=== PATIENT | female | born 1970 | race Caucasian/White ===

== ENCOUNTER → 2016-08-05 | Outpatient (CLI) | payer BC ==
--- NOTE | 2016-08-08 08:19 | XR ---
Lumbosacral spine HISTORY: Low back pain 5 views of the lumbosacral spine Comparison to lumbar spine MRI 08 October 2009 There is no spondylolysis or spondylolisthesis. Loss of disc height greatest at L3-4, L5-S1, there is associated spondylosis at L3-4. Sclerosis present in the posterior elements of the lower lumbar spin e compatible with facet arthropathy. Lumbar vertebral bodies show preserved height and bone mineraliz ation. IMPRESSION: Degenerative disc disease and facet arthropathy.
== END | disposition home or self-care (01) ==
LOC: RADXRYALE 14:07
PROVIDERS: ATTEND Physician Assistant Medical
DX: M51.16 Intervertebral disc disorders with radiculopathy, lumbar region (principal); M46.96 Unspecified inflammatory spondylopathy, lumbar region
CPT/HCPCS: 72110

== ENCOUNTER → 2019-01-24 | Outpatient (CLI) | payer BC ==
--- NOTE | 2019-01-28 08:12 | MM ---
Reason for exam: screening (asymptomatic). Last mammogram was performed 8 years and 1 month ago. History: Took hormonal contraceptives for 4 years. Physical Findings: A clinical breast exam by your physician is recommended on an annual basis and results should be correlated with mammographic findings. MG 3D Screening Mammo W/Cad Bilateral CC and MLO view(s) were taken. Prior study comparison: December 29, 2010, bilateral digital screening mammo w/CAD. October 10, 2008, bilateral digital screening mammogram. The breast tissue is heterogeneously dense. This may lower the sensitivity of mammography. No suspicious abnormality. No significant changes when compared with prior studies. ASSESSMENT: Negative, BI-RAD 1 RECOMMENDATION: Routine screening mammogram of both breasts in 1 year.
== END | disposition home or self-care (01) ==
LOC: RADMAMWWP 15:23
PROVIDERS: ATTEND Family Medicine
DX: Z12.31 Encounter for screening mammogram for malignant neoplasm of breast (principal)
CPT/HCPCS: 77063; 77067

== ENCOUNTER → 2019-03-20 | Outpatient (CLI) | payer BC ==
--- NOTE | 2019-03-20 16:07 | US ---
EXAMINATION TYPE: US pelvic complete DATE OF EXAM: 03/20/2019 COMPARISON: NONE CLINICAL HISTORY: N925 IRREG MENSES,R10.30 LOWER ABD PAIN. Irregular heavy painful periods x 1 year, 4, para 3, miscarriage 1, history of tubal ligation. TECHNIQUE: . Transabdominal sonographic images of the pelvis were acquired. Date of LMP: 3 weeks ago EXAM MEASUREMENTS: Uterus: 16.8 x 9.9 x 10.9 cm Endometrial Stripe: 0.8 cm Right Ovary: 2.7 x 1.5 x 1.9 cm Left Ovary: 3.3 x 2.5 x 3.8 cm 1. Uterus: anteverted, enlarged, heterogeneous with 10.5 x 8.6 x 9.1cm hypoechoic fibroid 2. Endometrium: visualized portions appear wnl, limited and distorted by fibroid uterus 3. Right Ovary: wnl 4. Left Ovary: 2.2 x 1.6 x 2.2cm cystic area 5. Bilateral Adnexa: wnl 6. Posterior cul-de-sac: wnl IMPRESSION: Enlarged heterogeneous uterus compatible with fibroids.
== END | disposition home or self-care (01) ==
LOC: RADUSWWP 14:31
PROVIDERS: ATTEND Family Medicine
DX: N92.5 Other specified irregular menstruation (principal)
CPT/HCPCS: 76856

== ENCOUNTER 2019-05-21 09:00 | Inpatient (IN) | payer BC ==
[2019-06-13 12:02] VITALS: BMI 30.9
--- NOTE | 2019-06-19 16:14 | P.HPOB ---
History of Present Illness H&P Date: 06/19/19 Chief Complaint: Dysfunctional uterine bleeding and fibroid uterus Ambika is a 49-year-old female with a grossly enlarged 16 week to 17 week size uterus with large 10+ centimeter fibroid. Risks/fit/alternatives to a total abdominal hysterectomy possible bilateral salpingo-oophorectomy were reviewed with the patient in detail and all questions were answered for her prior to proceeding to the operative room. Risks did include but were not limited to bleeding and infection, damage to bladder, damage to bowel, vascular injuries, nerve damage, potential need for further surgeries and ureteral injuries. Due to the grossly enlarged size of her uterus a open procedure has been opted for. We did discuss potentially doing something to reduce the size of the fibroid but is still wouldn't delay her treatment she is opted for total abdominal hysterectomy. Her symptoms have progressed and gotten worse. Her cycles are very irregular and painful now for approximately 1 year few months ago she had 24 days with the bleeding then stopped and then 2 weeks later began having bleeding again and endometrial biopsy was done in the office while scant tissue was returned it was benign. Past Medical History Past Medical History: Asthma, Hyperlipidemia Additional Past Medical History / Comment(s): Hypoglycemic. Uterine fibroid. Menses irreg, extremely heavy. History of Any Multi-Drug Resistant Organisms: None Reported Past Surgical History: Bladder Surgery, Orthopedic Surgery, Tubal Ligation Additional Past Surgical History / Comment(s): Bladder sling. ORIF Lt index finger, later had pins removed. Laparoscopic surg for endometriosis. Past Anesthesia/Blood Transfusion Reactions: Family History of Problems w/ Anesthesia Additional Past Anesthesia/Blood Transfusion Reaction / Comment(s): Father has anesthesia problems, unknown. Smoking Status: Never smoker - Past Family History Mother Family Medical History: No Reported History Medications and Allergies Home Medications Medication Instructions Recorded Confirmed Type ARIPiprazole [Abilify] 10 mg PO HS 06/13/19 06/13/19 History Albuterol Sulfate [Proair Hfa] 2 puff INHALATION Q4HR PRN 06/13/19 06/13/19 History Atomoxetine HCl [Strattera] 60 mg PO DAILY 06/13/19 06/13/19 History Atorvastatin [Lipitor] 20 mg PO HS 06/13/19 06/13/19 History Fluticasone/Salmeterol [Advair 1 inhalation PO BID 06/13/19 06/13/19 History 250-50 Diskus] Montelukast Sodium [Singulair] 10 mg PO HS 06/13/19 06/13/19 History Sertraline HCl [Zoloft] 100 mg PO HS 06/13/19 06/13/19 History buPROPion HCL [Wellbutrin XL] 450 mg PO HS 06/13/19 06/13/19 History lamoTRIgine [LaMICtal] 200 mg PO HS 06/13/19 06/13/19 History traMADol HCL [Ultram] 50 mg PO BID PRN 06/13/19 06/13/19 History Allergies Allergy/AdvReac Type Severity Reaction Status Date / Time No Known Allergies Allergy Verified 06/13/19 11:34 Exam Osteopathic Statement: *. No significant issues noted on an osteopathic structural exam other than those noted in the History and Physical/Consult. - OBG Physical Exam Breast: both: normal (no masses) Abdomen: bowel sounds normal, no diffuse tenderness, no bruit present, no guarding noted, no hepatomegaly, no splenomegaly, no mass Abdomen detail: right lower quadrant: mass (Grossly enlarged fibroid uterus), left lower quadrant: mass Vulva: both: normal Vagina: normal moisture, no discharge Cervix: no lesion, no discharge Uterus: normal size, enlarged (10 centimeter fibroid), normal contour Adnexa: both: normal Anus/Rectum: normal perianal skin, no rectal mass, no hemorrhoids, heme negative
[2019-06-20] MEDS ORDERED: HYDROCORTISONE SUCCINATE 100 MG/2 ML VIAL IV PRN (05:40)
[2019-06-20] MEDS ORDERED: MIDAZOLAM 2 MG/2 ML VIAL IV PRN (05:40)
[2019-06-20] MEDS ORDERED: DEXAMETHASONE SOD PHOSPHATE 10 MG/ML 1 ML VIAL IV ONE (05:40)
[2019-06-20] MEDS ORDERED: SCOPOLAMINE 1.5MG/72HR PATCH TRANSDERM ONE (05:40)
[2019-06-20 06:44] LABS: Glucose,Whole Blood 80 mg/dL (75-99)
[2019-06-20] MEDS: LACTATED RINGERS 1,000 ML IV SCH ×2 (06:45→19:07)
[2019-06-20] MEDS ORDERED: LIDOCAINE 1% 20 ML VIAL (10MG/ML) FOR IV START INTRADERMA ONE (07:05)
[2019-06-20] MEDS: ONDANSETRON 4 MG/2 ML VIAL IVP ONE ×2 (07:09→09:32)
[2019-06-20] MEDS ORDERED: fentaNYL (PF) 50 MCG/ML 2 ML AMP IVP ONE (07:12)
[2019-06-20] MEDS ORDERED: MIDAZOLAM 2 MG/2 ML VIAL IVP ONE (07:12)
[2019-06-20] MEDS ORDERED: NEOSTIGMINE 1 MG/ML 10 ML VIAL ONE (07:31)
[2019-06-20] MEDS ORDERED: ROCURONIUM BROMIDE 10 MG/ML 10 ML VIAL IV ONE (07:31)
[2019-06-20] MEDS ORDERED: PROPOFOL 10 MG/ML 20 ML VIAL IV ONE (07:31)
[2019-06-20] MEDS ORDERED: MORPHINE SULFATE (PF) 0.3 MG/0.3 ML SYR ONE (07:31)
[2019-06-20] MEDS ORDERED: LIDOCAINE 1% INJ 10MG/ML (20 ML MDV) ONE (07:31)
[2019-06-20] MEDS ORDERED: SUCCINYLCHOLINE CHLORIDE 100 MG/5 ML SYR IV ONE (07:31)
[2019-06-20] MEDS ORDERED: MIDAZOLAM 2 MG/2 ML VIAL ONE (07:31)
[2019-06-20] MEDS ORDERED: GLYCOPYRROLATE 0.2 MG/ML 2 ML VIAL ONE (07:31)
[2019-06-20] MEDS ORDERED: fentaNYL (PF) 50 MCG/ML 2 ML AMP ONE (07:31)
[2019-06-20] MEDS ORDERED: VASOPRESSIN 20 UNIT in SODIUM CHLORIDE 0.9% 60 ML SQ ONE (08:16)
[2019-06-20] MEDS ORDERED: LACTATED RINGERS 1,000 ML IV ONE (08:17)
[2019-06-20] MEDS ORDERED: ZOLPIDEM 5 MG TAB PO PRN (09:14)
[2019-06-20] MEDS ORDERED: NALOXONE 0.4 MG/ML 1 ML VIAL IV PRN ×2 (09:16→09:51)
[2019-06-20] MEDS ORDERED: HYDROmorphone PCA 10 MG/50 ML BAG IV PRN (09:16)
--- NOTE | 2019-06-20 09:23 | P.OP ---
Date of Procedure: 06/20/19 Preoperative Diagnosis: Menorrhagia: Fibroid uterus Postoperative Diagnosis: Same Procedure(s) Performed: Total abdominal hysterectomy with bilateral salpingectomy Anesthesia: DONATO Surgeon: Nacho Tate Fish Cutting Machine Operator #1: Margarita Zapata Estimated Blood Loss (ml): 350 IV fluids (ml): 1,300 Urine output (ml): 50 Pathology: other (Uterus, cervix, fallopian tubes) Condition: stable Disposition: floor Operative Findings: Grossly enlarged fibroid uterus Description of Procedure: Elinor was taken to the operating suite where a general anesthetic was found be adequate. She was prepped and draped in the normal sterile fashion and placed in the dorsal supine position. Initially a Pfannenstiel skin incision was made and this incision was then carried through to the underlying layer of the fascia was second knife. Fascia was then nicked in the midline and this opening was extended laterally with Hutchinson scissors. Superior and inferior aspect of this incision were then grasped tented up and bluntly and sharply dissected off the rectus muscles. Rectus muscles were then divided in the midline and sharp dissection through the peritoneum was done. This opening was then extended supe riorly and inferiorly with good visualization of both bowel bladder. The self- retaining retractor was then inserted into the abdomen and bowels packed out of the operative field. Patient was then placed in Trendelenburg position. Right and left adnexa were then grasped with a long Adore clamp and uterus was attempted to be lifted out of the abdomen. Unfortunately there was minimal upward mobility and we're unable to completely pull the uterus out into the abdomen incision. Therefore initially a Esvin clamp was then used to clamp the utero-ovarian ligament tissues clamped cut and tied bilaterally. Moving slowly inferiorly as the uterus occupied the essentially entire space of the incision opening the broad ligament tissues were dissected around the uterus including the round ligament that was clamped cut and tied once we ultimately the uterus off the bladder flap was identified and entered with Metzenbaum scissors and carried across face uterus with Metzenbaum scissors and the bladder was bluntly dissected out of the operative field. Continued very cautious and slow clamping and cutting of the tissues very closely uterus through the broad ligament tissues down to the uterine vascular was then done. Once were able to get full below the body of the uterus and onto the upper cervical margins with control of the uterine vasculature dilute Pitressin solution was injected into the uterus and it was incised with a scissor and following the Pitressin solution around was excised at the upper level of the cervix. Body of the uterus was then passed off to pathology. Brigette clamps were then used to grasp the couple's upper cervical body and it was elevated. Esvin clamps were then used to clamp the uterine vasculature moving inferiorly along the cardinal and uterosacral l igaments in a stepwise fashion. Once entering the vagina the corners were held and the cervix was removed from the operative field. Corners of the vaginal cuff were then reinforced and verification of excellent hemostasis along the pedicles was made. Once this was completed 0 Vicryl suture was used to close the vaginal cuff in a running locking fashion. Pelvis was then irrigated with no bleeding noted and excellent hemostasis was obtained a lateral ovaries were identified Esvin clamp was then used to clamp across the fallopian tube and it was excised and sutured. These were also sent to pathology for evaluation. Once this was completed instruments and bowel packing was removed peritoneal layer was then identified and marked with hemostats and then closed in a running fashion. Fascial layer was then closed with 0 Vicryl suture in a running fashion a liter of 3-0 Vicryl was placed in deep subcuticular tissues to reapproximate the skin and close space. Skin was then closed with 4-0 Vicryl on subcuticularly. Sponge, lap, needle counts were all correct 2. Patient was then taken to the recovery room in stable and satisfactory condition.
[2019-06-20] MEDS: HYDROmorphone 0.5 MG/0.5 ML SYRINGE IVP PRN ×5 (09:32→09:57)
[2019-06-20] MEDS: KETOROLAC 30 MG/ML 1 ML VIAL IVP PRN ×2 (09:32→16:59)
[2019-06-20] MEDS: MEPERIDINE 50 MG/ML SYRINGE IVP ONE ×2 (10:06→10:11)
[2019-06-20] MEDS: MORPHINE SULFATE 2 MG/ML SYRINGE IVP PRN ×2 (13:24→19:33)
[2019-06-20] MEDS ORDERED: ALBUTEROL NEBULIZED 2.5 MG/3 ML INHALATION PRN (17:14)
[2019-06-20] MEDS: SYMBICORT 80-4.5 MCG INHALER INHALATION SCH (19:56)
[2019-06-20] MEDS: lamoTRIgine 100 MG TAB PO SCH (21:41)
[2019-06-20] MEDS: SERTRALINE 100 MG TAB PO SCH (21:41)
[2019-06-20] MEDS: MONTELUKAST 10 MG TAB PO SCH (21:41)
[2019-06-20] MEDS: buPROPion XL 150 MG TAB.ER.24H PO SCH (21:41)
[2019-06-20] MEDS: ARIPiprazole 10 MG TAB PO SCH (21:41)
[2019-06-20] MEDS: ATORVASTATIN 20 MG TAB PO SCH (21:41)
[2019-06-21] MEDS: KETOROLAC 30 MG/ML 1 ML VIAL IVP PRN ×4 (00:58→19:15)
[2019-06-21 07:25] LABS: Basophils % (A) 0 %; Eosinophils # (A) 0.1 k/uL (0-0.7); Eosinophils % (A) 1 %; Hypochromasia Moderate; Lymphocytes # (A) 1.7 k/uL (1.0-4.8); Lymphocytes % (A) 15 %; MCH 24.3 pg (25.0-35.0); MCV 78.4 fL (80.0-100.0); Mean Platelet Volume 7.7; Monocytes # (A) 0.9 k/uL (0-1.0); Monocytes % (A) 8 %; Neutrophils # (A) 8.1 k/uL (1.3-7.7); Neutrophils % (A) 73 %; Platelet Count 279 k/uL (150-450); RBC 3.58 m/uL (3.80-5.40); RDW 15.4 % (11.5-15.5); WBC 11.2 k/uL (3.8-10.6)
[2019-06-21] MEDS ORDERED: SODIUM CHLORIDE 0.9% 500 ML 500 ML IV ONE (07:44)
[2019-06-21 07:50] LABS: HGB 8.7 gm/dL (11.4-16.0)
[2019-06-21] MEDS: SYMBICORT 80-4.5 MCG INHALER INHALATION SCH ×2 (09:02→20:39)
--- NOTE | 2019-06-21 09:09 | P.PN ---
Progress Note - Text Progress Note Date: 06/21/19 Postop day one: Ambika is overall doing well. Her vital signs are currently stable and afebrile. Her blood pressures 106/66. Hemoglobin is noted to be 8.7. She voices no complaints and has no signs or symptoms of hypovolemia. No tachycardia. Pain is relatively well-controlled. We'll restart the [place]. Goodwin catheter was not removed yesterday we will remove this morning and start ambulation. Likely advance diet later today. All questions are answered for her at this time. On physical exam heart regular, lungs clear, extremities without pain. Abdomen soft positive bowel sounds are noted in her incision is otherwise clean dry and intact. Assessment postop day 1. Plan continue current care. Will consult Dr. Morillo for medical management
[2019-06-21] MEDS: ATOMOXETINE HCL 60 MG PO SCH (11:45)
[2019-06-21] MEDS: HYDROcodone/APAP 7.5-325MG 1 EACH TAB PO PRN (12:14)
--- NOTE | 2019-06-21 14:17 | P.PN ---
Progress Note - Text 06/21 645am 49-year-old female status post total abdominal hysterectomy. Patient had a spinal an injection of Duramorph for postop pain control, with a VAS of 4, no complains of nausea vomiting. Patient did have complains of pruritus which should chace in 24 hours.
[2019-06-21] MEDS ORDERED: diphenhydrAMINE 25 MG CAP PO STA (15:50)
[2019-06-21] MEDS ORDERED: BACITRACIN 500 UNIT/GM OINT 28.4 GM TUBE TOPICAL ONE (15:50)
--- NOTE | 2019-06-21 17:27 | P.CONS ---
History of Present Illness - Reason for Consult Leukocytosis - History of Present Illness 49-year-old female admitted for elective hysterectomy for the leiomyoma of the uterus. Patient's x-ray underwent surgery and patient is comparing of severe pain. Patient denied any fever chills patient denied dysuria cough runny nose. Patient does have leukocytosis and low hemoglobin both of which are expected pos tsurgery. Blood pressure is low back as well which is also expected postsurgery. Review of Systems REVIEW OF SYSTEMS: CONSTITUTIONAL: No fever, no malaise, no fatigue. HEENT: No recent visual problems or hearing problems. Denied any sore throat. CARDIOVASCULAR: No chest pain, orthopnea, PND, no palpitations, no syncope. PULMONARY: No shortness of breath, no cough, no hemoptysis. GASTROINTESTINAL: No diarrhea, no nausea, no vomiting, no abdominal pain. NEUROLOGICAL: No headaches, no weakness, no numbness. HEMATOLOGICAL: Denies any bleeding or petechiae. GENITOURINARY: Denies any burning micturition, frequency, or urgency. MUSCULOSKELETAL/RHEUMATOLOGICAL: Denies any joint pain, swelling, or any muscle pain. ENDOCRINE: Denies any polyuria or polydipsia. The rest of the 14-point review of systems is negative. Past Medical History Past Medical History: Asthma, Hyperlipidemia Additional Past Medical History / Comment(s): Hypoglycemic. Uterine fibroid. Menses irreg, extremely heavy. History of Any Multi-Drug Resistant Organisms: None Reported Past Surgical History: Bladder Surgery, Orthopedic Surgery, Tubal Ligation Additional Past Surgical History / Comment(s): Bladder sling. ORIF Lt index finger, later had pins removed. Laparoscopic surg for endometriosis. Past Anesthesia/Blood Transfusion Reactions: Family History of Problems w/ Anesthesia Additional Past Anesthesia/Blood Transfusion Reaction / Comm: Father has anesthesia problems, unknown. Past Psychological History: ADD/ADHD, Anxiety, Bipolar, Depression Smoking Status: Never smoker Past Alcohol Use History: Occasional Past Drug Use History: None Reported - Past Family History Mother Family Medical History: No Reported History Medications and Allergies Home Medications Medication Instructions Recorded Confirmed Type ARIPiprazole [Abilify] 10 mg PO HS 06/13/19 06/20/19 History Albuterol Sulfate [Proair Hfa] 2 puff INHALATION Q4HR PRN 06/13/19 06/20/19 History Atomoxetine HCl [Strattera] 60 mg PO DAILY 06/13/19 06/20/19 History Atorvastatin [Lipitor] 20 mg PO HS 06/13/19 06/20/19 History Fluticasone/Salmeterol [Advair 1 inhalation PO BID 06/13/19 06/20/19 History 250-50 Diskus] Montelukast Sodium [Singulair] 10 mg PO HS 06/13/19 06/20/19 History Sertraline HCl [Zoloft] 100 mg PO HS 06/13/19 06/20/19 History buPROPion HCL [Wellbutrin XL] 450 mg PO HS 06/13/19 06/20/19 History lamoTRIgine [LaMICtal] 200 mg PO HS 06/13/19 06/20/19 History traMADol HCL [Ultram] 50 mg PO BID PRN 06/13/19 06/20/19 History Allergies Allergy/AdvReac Type Severity Reaction Status Date / Time No Known Allergies Allergy Verified 06/20/19 06:20 Physical Exam Vitals: Vital Signs Temp Pulse Resp BP Pulse Ox 06/21/19 15:00 98.1 F 92 18 96/62 92 L 06/21/19 13:00 18 06/21/19 11:00 18 06/21/19 09:00 18 06/21/19 08:57 106/66 06/21/19 08:35 85 18 06/21/19 07:00 98.4 F 85 18 78/48 97 06/21/19 04:46 93/57 06/21/19 04:30 95/58 06/21/19 02:45 98/57 06/21/19 01:45 98.1 F 97 16 86/49 96 06/21/19 01:01 13 06/20/19 23:11 14 06/20/19 18:52 97.9 F 87 16 100 Intake and Output 06/21/19 06/21/19 06/21/19 06:59 14:59 22:59 Intake Total 1736 Output Total 1120 Balance -1120 1736 Intake: Oral 1736 Output: Urine 1120 Uretheral (Goodwin) 210 Other: Voiding Method Indwelling Catheter # Voids 2 PHYSICAL EXAMINATION: GENERAL: The patient is alert and oriented x3, not in any acute distress. Well developed, well nourished. HEENT: Pupils are round and equally reacting to light. EOMI. No scleral icterus. No conjunctival pallor. Normocephalic, atraumatic. No pharyngeal erythema. No thyromegaly. CARDIOVASCULAR: S1 and S2 present. No murmurs, rubs, or gallops. PULMONARY: Chest is clear to auscultation, no wheezing or crackles. ABDOMEN: Soft, nontender, nondistended, normoactive bowel sounds. No palpable organomegaly. MUSCULOSKELETAL: No joint swelling or deformity. EXTREMITIES: No cyanosis, clubbing, or pedal edema. NEUROLOGICAL: Gross neurological examination did not reveal any focal deficits. SKIN: No rashes. Results CBC & Chem 7: 06/21/19 06:58 Labs: Abnormal Lab Results - Last 24 Hours (Table) 06/21/19 Range/Units 06:58 WBC 11.2 H (3.8-10.6) k/uL RBC 3.58 L (3.80-5.40) m/uL Hgb 8.7 L D (11.4-16.0) gm/dL Hct 28.0 L (34.0-46.0) % MCV 78.4 L (80.0-100.0) fL MCH 24.3 L (25.0-35.0) pg Neutrophils # 8.1 H (1.3-7.7) k/uL Assessment and Plan Plan: -Leukocytosis: Reactive no evidence of from infection at this time no more testing is necessary. Watch for any fevers. -Anemia patient appears to have some acute blood last anemia from surgery unsure whether patient has chronic anemia which can be further evaluated as an outpatient no further testing is necessary for this either -Mild hypotension which is expected postoperatively. Treat with the IV fluids -Hyperlipidemia resumed on statin -Asthma without any acute exacerbation -Depression patient was resumed on sertraline
[2019-06-21] MEDS: SERTRALINE 100 MG TAB PO SCH (19:17)
[2019-06-21] MEDS: ATORVASTATIN 20 MG TAB PO SCH (19:17)
[2019-06-21] MEDS: buPROPion XL 150 MG TAB.ER.24H PO SCH (19:17)
[2019-06-21] MEDS: ARIPiprazole 10 MG TAB PO SCH (19:17)
[2019-06-21] MEDS: lamoTRIgine 100 MG TAB PO SCH (19:17)
[2019-06-21] MEDS: MONTELUKAST 10 MG TAB PO SCH (19:18)
[2019-06-22] MEDS: MORPHINE SULFATE 2 MG/ML SYRINGE IVP PRN ×3 (00:43→08:03)
[2019-06-22] MEDS: LACTATED RINGERS 1,000 ML IV SCH (05:14)
[2019-06-22] MEDS: SYMBICORT 80-4.5 MCG INHALER INHALATION SCH ×2 (07:18→19:22)
[2019-06-22] MEDS: ATOMOXETINE HCL 60 MG PO SCH (10:16)
--- NOTE | 2019-06-22 11:16 | P.PN ---
Progress Note - Text Progress Note Date: 06/22/19 Elinor is seen and evaluated postop day 2. I did see her last night postop day 1 at approximately 5 PM and she was feeling well up ambulating minimally and tolerating a diet. This morning she is in bed laying on her side in significant discomfort and pain complaining that her pain is an 8 out of 10. She relates the pain began increasing dramatically last night sometime after 8 PM and has progressively gotten worse. She did not sleep most of the night but I was not notified of any change. She's been receiving morphine IV intermittently, has flatly refused Toradol and [place]. It is unclear if she simply is gotten too far behind with her pain medications or with her limited flatus has gas-like pain. She did have a drop in her hemoglobin yesterday to 8.7 we'll repeat this morning with CMP to verify no other gross findings. Ordered a acute abdominal x-ray with chest x-ray to rule out ileus/early SBO. She relates that she is decided to not take her medicines because they were not working but I think there is some confusion as to what the goal for the use of Toradol was think she thought that were always for acute pain understanding that is more an anti-inflammatory and we'll just reduce the inflammation and thereby decrease the pain versus the morphine which was 4 for acute incisional pain. Her vital signs are otherwise stable. She is afebrile. Heart regular in rate and rhythm Lungs clear to auscultation bilaterally Abdomen is soft minimally distended with good bowel sounds noted in all 4 quadrants. Her incision is otherwise intact and unremarkable. She relates that she has passed minimal flatus and has not had a bowel movement. Her extremities are without pain and have no significant edema. Assessment postop day 2. Plan as above and I will go to recheck her early this afternoon and see if we have any improvement in her symptomatology once these changes are made. I advised that I want her to at least try the Toradol again and see if we can decrease some of the inflammatory status and we need her to ambulate and try and pass her flatus if that was causing her pain.
--- NOTE | 2019-06-22 11:48 | XR ---
EXAMINATION TYPE: XR abdomen acute w cxr DATE OF EXAM: 06/22/2019 CLINICAL HISTORY: Pain after hysterectomy 3 days earlier. TECHNIQUE: Single frontal view of chest is obtained. Supine and upright views of the abdomen are acq uired. COMPARISON: None. FINDINGS: There is patchy left basilar linear atelectasis. Right lung is clear. Cardiac silhouette s ize appears upper limits of normal. Osseous structures are intact. Gas is seen in slightly prominent stomach as well as small and large bowel loops throughout the abdom en with few scattered air-fluid levels. Right-sided pelvic phleboliths. No free air. Osseous structur es are intact IMPRESSION: 1. Patchy left basilar linear atelectasis. 2. Overall nonspecific but likely nonobstructive bowel gas pattern. Favor diffuse ileus as suspected clinically.
[2019-06-22] MEDS ORDERED: KETOROLAC 30 MG/ML 1 ML VIAL IVP STA (11:49)
[2019-06-22] MEDS: HYDROcodone/APAP 7.5-325MG 1 EACH TAB PO PRN ×2 (12:00→17:42)
[2019-06-22] MEDS: SIMETHICONE 80 MG CHEWABLE PO SCH ×3 (12:14→21:44)
[2019-06-22 12:38] LABS: Basophils % (A) 0 %; Eosinophils # (A) 0.1 k/uL (0-0.7); Eosinophils % (A) 1 %; HCT 28.7 % (34.0-46.0); HGB 8.9 gm/dL (11.4-16.0); Hypochromasia Marked; Lymphocytes # (A) 0.9 k/uL (1.0-4.8); Lymphocytes % (A) 5 %; MCH 24.5 pg (25.0-35.0); MCV 78.9 fL (80.0-100.0); Mean Platelet Volume 7.3; Monocytes # (A) 1.1 k/uL (0-1.0); Monocytes % (A) 7 %; Neutrophils # (A) 14.3 k/uL (1.3-7.7); Neutrophils % (A) 86 %; Platelet Count 287 k/uL (150-450); RBC 3.64 m/uL (3.80-5.40); RDW 15.4 % (11.5-15.5); WBC 16.6 k/uL (3.8-10.6)
[2019-06-22 12:53] LABS: ALT 22 U/L (4-34); AST 35 U/L (14-36); African American GFR (CKD) >90 (>60 ml/min/1.73 sqM); Alkaline Phosphatase 66 U/L (38-126); Anion Gap 5 mmol/L; Blood Urea Nitrogen 11 mg/dL (7-17); Calcium 8.2 mg/dL (8.4-10.2); Carbon Dioxide 27 mmol/L (22-30); Chloride 105 mmol/L (98-107); Glucose 94 mg/dL (74-99); Non-African American GFR(CKD) >90 (>60 ml/min/1.73 sqM); Potassium 4.3 mmol/L (3.5-5.1); Sodium 137 mmol/L (137-145); Total Bilirubin 0.4 mg/dL (0.2-1.3); Total Protein 5.5 g/dL (6.3-8.2)
--- NOTE | 2019-06-22 14:21 | P.PN ---
Progress Note - Text Progress Note Date: 06/22/19 Elinor seen and evaluated again postop day 1. She appears much more comfortable for her pain is much better was she's not passing any significant more flatus. The Toradol and [place] seem to be helping significantly. She was drinking some liquids I advised her not to eat anything but liquids likely are fine if she used judiciously until she is passing flatus. We will make sure she ambulates more later today and if pain recurs likely add Reglan to help with possible early ileus. All the questions are answered for both she and her this time. We will try 1 more dose of Toradol and then discontinue the Toradol and start her on Motrin for anti-inflammatory. White blood cell count was 16 this morning which is elevated from yesterday for unknown reason. Vital signs are stable and afebrile and there is no hyperpyrexia, will however it had antibiotics as precaution due to length and complexity of surgery.
[2019-06-22] MEDS ORDERED: KETOROLAC 30 MG/ML 1 ML VIAL IVP ONE (18:00)
[2019-06-22] MEDS: ALBUTEROL NEBULIZED 2.5 MG/3 ML INHALATION SCH (19:39)
[2019-06-22] MEDS: buPROPion XL 150 MG TAB.ER.24H PO SCH (21:41)
[2019-06-22] MEDS: SERTRALINE 100 MG TAB PO SCH (21:41)
[2019-06-22] MEDS: lamoTRIgine 100 MG TAB PO SCH (21:41)
[2019-06-22] MEDS: MONTELUKAST 10 MG TAB PO SCH (21:42)
[2019-06-22] MEDS: ARIPiprazole 10 MG TAB PO SCH (21:42)
[2019-06-22] MEDS: ATORVASTATIN 20 MG TAB PO SCH (21:42)
--- NOTE | 2019-06-22 22:08 | PN ---
PROGRESS NOTE DATE OF SERVICE: 06/22/2019 This 49-year-old woman who was admitted total abdominal hysterectomy with bilateral salpingectomy for menorrhagic fibroid uterus, is complaining of persistent abdominal pain. A plain x-ray abdomen showed some intestinal dilatation as well as atelectasis. The morphine has been withheld because of that reason. WBC 16.2, hemoglobin is 8.9. Patient closely monitored. There is no history of fever, rigors, chills, chest pain, palpitations at this time. PHYSICAL EXAMINATION: Patient is alert, oriented x3. Pulse is 98, blood pressure 107/67, respiration 18, temperature 97.9, pulse ox 94% on room air. HEENT: Conjunctivae normal. Oral mucosa moist. NECK: No jugular venous distention. No lymph node enlargement. CARDIOVASCULAR: S1, S2. RESPIRATORY: Diminished breath sounds at the bases. A few scattered rhonchi. ABDOMEN: Soft, status post surgery. LEGS: No swelling. NERVOUS SYSTEM: No focal deficits. LABS: WBC 16.2, hemoglobin is 8.9. ASSESSMENT: 1. Status post total abdominal hysterectomy and as well as bilateral salpingectomy for menorrhagia and fibroid uterus. 2. Postoperative atelectasis as expected. 3. Increased WBC, possibly reactive in nature. 4. Anemia, microcytic anemia of chronic blood-loss anemia, present on admission. 5. History of asthma. 6. Hyperlipidemia. 7. History of hypoglycemia. 8. History uterine fibroids. 9. History of bladder surgery. 10.History of degenerative joint disease. 11.History attention deficit/attention deficit hyperactivity disorder, anxiety, bipolar depression. RECOMMENDATIONS AND DISCUSSION: In this 49-year-old woman who presented with multiple complex medical issues, at this time I recommend to continue current medications, management and symptomatic treatment. I recommend to add a course of bronchodilators, incentive spirometry, proton pump inhibitors. Otherwise, I would also recommend repeat labs in the morning to ensure stability. Otherwise, we will follow the patient closely with you. Thank you Dr. Tate. BONILLA / SAM: [id number] /
[2019-06-23 03:07] VITALS: TEMP 97.6
[2019-06-23] MEDS: IBUPROFEN 600 MG TAB PO SCH ×2 (03:09→08:53)
[2019-06-23] MEDS: HYDROcodone/APAP 7.5-325MG 1 EACH TAB PO PRN ×2 (03:11→08:54)
[2019-06-23] MEDS: LACTATED RINGERS 1,000 ML IV SCH (05:18)
[2019-06-23 07:39] LABS: Anisocytosis Slight; Basophils % (A) 0 %; Eosinophils # (A) 0.2 k/uL (0-0.7); Eosinophils % (A) 1 %; HCT 26.9 % (34.0-46.0); HGB 8.2 gm/dL (11.4-16.0); Hypochromasia Moderate; Lymphocytes # (A) 1.3 k/uL (1.0-4.8); Lymphocytes % (A) 10 %; MCH 24.1 pg (25.0-35.0); MCHC 30.6 g/dL (31.0-37.0); MCV 78.8 fL (80.0-100.0); Mean Platelet Volume 7.3; Monocytes # (A) 1.1 k/uL (0-1.0); Monocytes % (A) 8 %; Neutrophils # (A) 10.8 k/uL (1.3-7.7); Neutrophils % (A) 78 %; Platelet Count 258 k/uL (150-450); RBC 3.41 m/uL (3.80-5.40); RDW 16.2 % (11.5-15.5); WBC 13.8 k/uL (3.8-10.6)
[2019-06-23 08:14] VITALS: BP 102/66; PULSE 86; RESP 18
[2019-06-23 08:18] LABS: African American GFR (CKD) >90 (>60 ml/min/1.73 sqM); Anion Gap 4 mmol/L; Blood Urea Nitrogen 10 mg/dL (7-17); Carbon Dioxide 28 mmol/L (22-30); Chloride 106 mmol/L (98-107); Glucose 78 mg/dL (74-99); Non-African American GFR(CKD) >90 (>60 ml/min/1.73 sqM); Potassium 4.1 mmol/L (3.5-5.1); Sodium 138 mmol/L (137-145)
[2019-06-23] MEDS ORDERED: PANTOPRAZOLE 40 MG/10 ML VIAL IVP SCH (09:00)
[2019-06-23] MEDS: SYMBICORT 80-4.5 MCG INHALER INHALATION SCH (09:37)
[2019-06-23] MEDS: ALBUTEROL NEBULIZED 2.5 MG/3 ML INHALATION SCH (09:37)
[2019-06-23] MEDS: ATOMOXETINE HCL 60 MG PO SCH (09:45)
[2019-06-23] MEDS: SIMETHICONE 80 MG CHEWABLE PO SCH (09:48)
--- NOTE | 2019-06-23 10:15 | P.DS ---
Providers Date of admission: 06/20/19 06:04 Expected date of discharge: 06/23/19 Attending physician: Nacho Tate Consults: 06/21/19 09:08 Consult Physician Urgent Consulting Provider: Jesus Mena Consult Reason/Comments: medical management Do you want consulting provider notified?: Yes Primary care physician: [facility] Course: Elinor is doing much better this morning. She is ambulating, voiding and tolerating her diet. Other than some incisional pain she is feeling well. Her vital signs are stable and she is afebrile. Heart regular, lungs clear, extre mities are without pain. Abdomen is soft positive bowel sounds are noted in her incision is otherwise clean dry and intact. We'll plan discharged home today with instructions to follow up with me in approximately 1 week. Prescription for [place]/Keflex/Motrin were all 4 to the pharmacy. A abdominal binder is being ordered to help with her cough and pain with coughing. Otherwise she is stable for discharge and discharge instructions were thoroughly reviewed. Assessment postop day 3 from a total abdominal hysterectomy with mild ileus yesterday and blood loss anemia Plan discharged home follow up with me in approximately 1 week her prescription restrictions reported to the pharmacy. She is going to be on [place] and Motrin. She should not take her Ultram with the [place]. Patient Condition at Discharge: Good Plan - Discharge Summary Discharge Rx Participant: No New Discharge Prescriptions: New Ibuprofen [Motrin] 600 mg PO Q6HR PRN #30 tab PRN Reason: Pain HYDROcodone/APAP 5-325MG [[place] 5-325] 1 tab PO Q4HR PRN #30 tab PRN Reason: Pain Cephalexin [Keflex] 500 mg PO Q6HR 3 Days #12 cap No Action Albuterol Sulfate [Proair Hfa] 2 puff INHALATION Q4HR PRN PRN Reason: asthma sx ARIPiprazole [Abilify] 10 mg PO HS Atomoxetine HCl [Strattera] 60 mg PO DAILY Atorvastatin [Lipitor] 20 mg PO HS buPROPion HCL [Wellbutrin XL] 450 mg PO HS Fluticasone/Salmeterol [Advair 250-50 Diskus] 1 inhalation PO BID lamoTRIgine [LaMICtal] 200 mg PO HS Montelukast Sodium [Singulair] 10 mg PO HS Sertraline HCl [Zoloft] 100 mg PO HS traMADol HCL [Ultram] 50 mg PO BID PRN PRN Reason: Pain Discharge Medication List ARIPiprazole [Abilify] 10 mg PO HS 06/13/19 [History] Albuterol Sulfate [Proair Hfa] 2 puff INHALATION Q4HR PRN 06/13/19 [History] Atomoxetine HCl [Strattera] 60 mg PO DAILY 06/13/19 [History] Atorvastatin [Lipitor] 20 mg PO HS 06/13/19 [History] Fluticasone/Salmeterol [Advair 250-50 Diskus] 1 inhalation PO BID 06/13/19 [History] Montelukast Sodium [Singulair] 10 mg PO HS 06/13/19 [History] Sertraline HCl [Zoloft] 100 mg PO HS 06/13/19 [History] buPROPion HCL [Wellbutrin XL] 450 mg PO HS 06/13/19 [History] lamoTRIgine [LaMICtal] 200 mg PO HS 06/13/19 [History] traMADol HCL [Ultram] 50 mg PO BID PRN 06/13/19 [History] HYDROcodone/APAP 5-325MG [[place] 5-325] 1 tab PO Q4HR PRN #30 tab 06/22/19 [Rx] Ibuprofen [Motrin] 600 mg PO Q6HR PRN #30 tab 06/22/19 [Rx] Cephalexin [Keflex] 500 mg PO Q6HR 3 Days #12 cap 06/23/19 [Rx] Follow up Appointment(s)/Referral(s): Nacho Tate DO [Doctor of Osteopathic Medicine] - 1 Week Activity/Diet/Wound Care/Special Instructions: No heavy lifting, limit stairs and driving, and pelvic rest. If any high temperatures, heavy bleeding, or severe pain call my office
== END 2019-06-23 11:33 | disposition home or self-care (01) | DRG 742 ==
LOC: 2ORMAIN 06-20 06:04 → 4SSUR 06-20 09:29
PROVIDERS: ADMIT Obstetrics & Gynecology; ATTEND Obstetrics & Gynecology
PROC: 0UT90ZZ Resection of Uterus, Open Approach (ICD-10-PCS; principal; 2019-06-20 07:30)
PROC: 0UT70ZZ Resection of Bilateral Fallopian Tubes, Open Approach (ICD-10-PCS; principal; 2019-06-20 07:30)
DX: D25.9 Leiomyoma of uterus, unspecified (principal); D62 Acute posthemorrhagic anemia; K56.7 Ileus, unspecified; E78.5 Hyperlipidemia, unspecified; F31.9 Bipolar disorder, unspecified; F90.9 Attention-deficit hyperactivity disorder, unspecified type; F41.9 Anxiety disorder, unspecified; J45.909 Unspecified asthma, uncomplicated; N92.0 Excessive and frequent menstruation with regular cycle; N93.8 Other specified abnormal uterine and vaginal bleeding; Z79.899 Other long term (current) drug therapy
CPT/HCPCS: 74022; 80048; 80053; 81025; 85025; 86850; 86900; 86901; 88307; 94640; 94760

== ENCOUNTER → 2019-06-17 | Outpatient (CLI) | payer BC ==
[2019-06-17 13:11] LABS: Basophils # (A) 0.1 k/uL (0-0.2); Basophils % (A) 1 %; Eosinophils # (A) 0.3 k/uL (0-0.7); Eosinophils % (A) 4 %; HCT 35.3 % (34.0-46.0); Hypochromasia Marked; Lymphocytes # (A) 1.7 k/uL (1.0-4.8); Lymphocytes % (A) 22 %; MCH 24.6 pg (25.0-35.0); MCHC 31.3 g/dL (31.0-37.0); MCV 78.6 fL (80.0-100.0); Mean Platelet Volume 7.8; Monocytes # (A) 0.7 k/uL (0-1.0); Monocytes % (A) 8 %; Neutrophils % (A) 62 %; Platelet Count 374 k/uL (150-450); RBC 4.49 m/uL (3.80-5.40); RDW 14.7 % (11.5-15.5)
[2019-06-17 13:23] LABS: Calcium 9.6 mg/dL (8.4-10.2); Potassium 4.6 mmol/L (3.5-5.1)
== END | disposition home or self-care (01) ==
LOC: LABPAT 11:56
PROVIDERS: ATTEND Obstetrics & Gynecology
DX: Z01.812 Encounter for preprocedural laboratory examination (principal)
CPT/HCPCS: 36415; 80048; 85025

== ENCOUNTER → 2021-11-05 | Outpatient (CLI) | payer BC ==
--- NOTE | 2021-11-05 09:18 | BD ---
EXAMINATION TYPE: Axial Bone Density DATE OF EXAM: 11/05/2021 COMPARISON: NONE CLINICAL HISTORY: 51 years year old Female. ICD-10 CODE: Z780 POST MENOPAUSAL WITHOUT HRT Height: 63 Weight: 174.2 FRAX RISK QUESTIONS: Alcohol (3 or more units per day): NO Family History (Parent hip fracture): NO Glucocorticoids (More than 3mos): NO History of Fracture in Adulthood: NO Secondary Osteoporosis: 1. Type 1 Diabetes: NO 2. Hyperthyroidism: NO 3. Menopause before 45: NO 4. Malnutrition: NO 5. Chronic liver disease: NO Rheumatoid Arthritis: NO Current Tobacco Use: NO RISK FACTORS HISTORY OF: Hip Fracture (Right/Left): NO Spine Fracture: NO History of Wrist Fracture: NO Surgery to Spine/Hip(right/left)/Wrist (right/left): NO Family History of Osteoporosis: NO Active: NO Diet low in dairy products/other sources of calcium: YES Postmenopausal woman: NO Take estrogen and/or progesterone medications: NO Lost more than 2 inches in height since high school: NO Frequent falls: NO Poor Health: NO Hyperparathyroidism: NO Adrenal Insufficiency: NO MEDICATIONS: Prednisone or other steroids: NO Thyroid Medications: NO Osteoporosis Medications: NO Additional Medications: LIPITOR, SINGULAR, ADVAIR Additional History: EXAM MEASUREMENTS: Bone mineral densitometry was performed using the [employer] System. Bone mineral density as measured about the Lumbar spine is: ----- L1-L4(G/cm2): 1.693 T Score Values are as follows: ----- L1: 3.2 ----- L2: 3.7 ----- L3: 5.0 ----- L4: 4.8 ----- L1-L4: 4.3 BASELINE STUDY Bone mineral density about the R hip (g/cm2): 1.084 Bone mineral density about the L hip (g/cm2): 1.148 T Score values are as follows: -----R Neck: 0.3 -----L Neck: 0.8 -----R Total: 1.1 -----L Total: 1.4 BASELINE STUDY FRAX%s: The graph provided illustrates a 3.7% chance for a major osteoporotic fx and a 0.0% chance fo r the hips probability for fx in 10 years time. IMPRESSION: No evidence for osteoporosis or osteopenia. NOTE: T-SCORE=SD OF THE YOUNG ADULT MEAN.
--- NOTE | 2021-11-09 13:37 | MM ---
Reason for Exam: Screening (asymptomatic). Last mammogram was performed 2 year(s) and 9 month(s) ago. Patient History: Menarche at age 11. First Full-Term at age 19. Hysterectomy at age 48. Postmenopausal. Hormonal Contraceptives for 4 years until age 20. Film Views: Bilateral CC views were taken. Bilateral MLO views were taken. Prior Study Comparison: 01/24/2019 Bilateral Screening Mammogram, [facility]. Tissue Density: There are scattered fibroglandular densities. Findings: Analyzed By CAD. No significant changes when compared with prior studies. Overall Assessment: Negative, BI-RAD 1 Management: Screening Mammogram of both breasts in 1 year.
== END | disposition home or self-care (01) ==
LOC: RADMAMWWP 08:10
PROVIDERS: ATTEND Obstetrics & Gynecology
DX: Z12.31 Encounter for screening mammogram for malignant neoplasm of breast (principal); Z78.0 Asymptomatic menopausal state; Z90.710 Acquired absence of both cervix and uterus
CPT/HCPCS: 77063; 77067; 77080

== ENCOUNTER → 2022-09-21 | Outpatient (CLI) | payer BC ==
--- NOTE | 2022-09-21 18:35 | CT ---
EXAMINATION TYPE: CT abdomen pelvis w con DATE OF EXAM: 09/21/2022 COMPARISON: 07/13/2021 HISTORY: Lower abdominal pain, history of diverticulitis. CT DLP: 744.6 mGycm Automated exposure control for dose reduction was used. CONTRAST: Performed with IV Contrast, patient injected with 100 cc mL of Isovue 300. Images obtained from the diaphragm to the floor the pelvis with oral and IV contrast. The lung bases are clear. No pleural effusion. Heart size is normal. No pericardial effusion. Liver spleen and stomach pancreas and gallbladder appear intact. The bile ducts are not dilated. There is no adrenal mass. Kidneys show satisfactory contrast opacification. No hydronephrosis. Delaye d images show normal renal excretion. There is no retroperitoneal adenopathy. Bladder distends smooth ly. No inguinal hernia. No evidence of bladder mass. There is mild fat stranding in the pelvis in the midline and towards the right side at the mid sigmoi d colon. There are sigmoid diverticula. There is minimal fluid on the right side. There are numerous sigmoid diverticula. The small bowel pattern is normal. No mesenteric lymphadenopathy. Small bowel mesentery appears marybeth l. No evidence of thickened appendix. Appendix appears to be small and posterior. The lumbar vertebrae have normal alignment. Posterior elements are intact. No compression fracture. T here is no C4 disc space narrowing and spur formation. Bony pelvis is intact. The hip joints are inta ct. Sacroiliac joints are intact. IMPRESSION: Inflammatory changes in the pelvis involving the mid sigmoid colon also present on old exam and consi stent with some mild diverticulitis. Extensive sigmoid diverticulosis. Normal small appendix.
== END | disposition home or self-care (01) ==
LOC: RADCTMAIN 16:04
PROVIDERS: ATTEND Family Medicine
DX: K57.30 Diverticulosis of large intestine without perforation or abscess without bleeding (principal); N73.9 Female pelvic inflammatory disease, unspecified; R10.32 Left lower quadrant pain; R10.31 Right lower quadrant pain; Z87.19 Personal history of other diseases of the digestive system
CPT/HCPCS: 74177; Q9967

== ENCOUNTER → 2022-11-09 | Outpatient (CLI) | payer BC ==
--- NOTE | 2022-11-09 10:24 | XR ---
EXAMINATION TYPE: XR lumbosacral spine min 4V DATE OF EXAM: 11/09/2022 10:19 AM INDICATION: Patient age:Female; 52 years old; Reason for study: [id number] IDD; [facility]. COMPARISON: CT head and pelvis 09/21/2022, lumbosacral spine radiograph 08/05/2016 TECHNIQUE: Frontal, lateral , bilateral oblique and coned in L5-S1 lateral views of the spine. FINDINGS: There are 5 lumbar type vertebral bodies identified. No evidence of any acute osseous patho logy. Multilevel disc space narrowing with endplate process anterior osteophytosis. This is most pro nounced at L3-L4. Multilevel facet arthropathy most pronounced at L5-S1. No evidence of loss of verte bral body height is seen. There is normal alignment of the lumbar vertebral bodies. IMPRESSION: 1. No acute process. 2. Mild multilevel degenerative disc disease most pronounced at L3-L4.
== END | disposition home or self-care (01) ==
LOC: RADXRYALE 09:35
PROVIDERS: ATTEND Physician Assistant
DX: M51.36 Other intervertebral disc degeneration, lumbar region (principal)
CPT/HCPCS: 72110

== ENCOUNTER → 2024-02-29 | Outpatient (CLI) | payer BC ==
--- NOTE | 2024-03-03 11:28 | MM ---
Reason for Exam: Screening (asymptomatic). Last mammogram was performed 2 year(s) and 4 month(s) ago. Patient History: Menarche at age 11. First Full-Term at age 19. Hysterectomy at age 48. Postmenopausal. Hormonal Contraceptives for 4 years until age 20. Risk Values: Garima 5 year model risk: 0.9%. NCI Lifetime model risk: 6.8%. Prior Study Comparison: 12/29/2010 Bilateral Screening Mammogram, [facility]. 01/24/2019 Bilateral Screening Mammogram, [facility]. 11/05/2021 Bilateral MG 3D screening mammo w/cad, [facility]. Tissue Density: There are scattered areas of fibroglandular density. Findings: Analyzed By CAD. Right breast: There is no suspicious group of microcalcifications or new suspicious mass. Benign-appearing calcifications right breast. Left breast: There is no suspicious group of microcalcifications or new suspicious mass. Benign-appearing calcifications left breast. Overall Assessment: Benign, BI-RAD 2 Management: Screening Mammogram of both breasts in [address] [facility] will attempt to contact patient to return for supplemental views and ultrasound if indicated. Patient should continue monthly self-breast exams. A clinical breast exam by your physician is recommended on an annual basis. This exam should not preclude additional follow-up of suspicious palpable abnormalities. Note on Garima scores and lifetime risk: 1. A Garima score greater than 3% is considered moderate risk. If this is the case, consider specialist referral to assess eligibility for a risk reducing agent. 2. If overall lifetime risk for the development of breast cancer is 20% or higher, the patient may qualify for future screening with alternating mammogram and breast MRI. Electronically signed and approved by: Angel Neal DO
== END | disposition home or self-care (01) ==
LOC: RADMAMWWP 10:50
PROVIDERS: ATTEND Family Medicine
DX: Z12.31 Encounter for screening mammogram for malignant neoplasm of breast
CPT/HCPCS: 77063; 77067